=== PATIENT | female | born 1965 | race Caucasian/White ===

== ENCOUNTER 2018-05-15 19:23 | Emergency (ER) | payer MEDICAID, OTHER ==
[~2018-05-15] VITALS: Ht 157.5 cm; Wt 72.1 kg
[2018-05-15 20:10] VITALS: Ht 157.5 cm; Wt 72.1 kg
[2018-05-16] MEDS ORDERED: SOD CHLORIDE 0.9% 1,000 ML IV ONE (00:30)
[2018-05-16] MEDS ORDERED: KETOROLAC 15 MG INJ IV STA (00:45)
[2018-05-16] MEDS ORDERED: DIPHENHYDRAMINE 50 MG INJ IV ONE (01:00)
[2018-05-16] MEDS ORDERED: METOCLOPRAMIDE 10 MG INJ IV ONE (01:00)
[2018-05-16] MEDS ORDERED: METF-849 PO (02:34)
[2018-05-16] MEDS ORDERED: IBUP-1542 PO (02:35)
--- NOTE | 2018-05-16 02:43 | EN ---
Date/Time of Note Date/Time of Note DATE: 05/16/18 TIME: 02:43 IRASEMA ALVAREZ PA-C May 16, 2018 02:43
[2018-05-16 02:48] VITALS: BP 114/58; PULSE 50; RESP 18
--- NOTE | 2018-05-16 02:54 | ERD ---
ER Documentation Chief Complaint Chief Complaint headache x2 hrs. HPI This is a 52-year-old female presenting to the ED complaining of moderate tight bandlike headache for the past few hours. Patient states that she does not have any medical problems were checked her blood sugar at home and she said that she thought it was 500 therefore she came to the ER. Patient admits to nausea. She denies vomiting, vision changes, neuro deficits. States that she has not take any medications for this. ROS All systems reviewed and are negative except as per history of present illness. Medications Home Meds Active Scripts Ibuprofen* (Motrin*) 600 Mg Tab, 600 MG PO Q6H PRN for PAIN AND OR ELEVATED TEMP, #30 TAB Prov:IRASEMA ALVAREZ PA-C 05/16/18 Metformin* (Glucophage*) 500 Mg Tab, 500 MG PO BID, #60 TAB Prov:IRASEMA ALVAREZ PA-C 05/16/18 Allergies Allergies: Coded Allergies: No Known Allergy (Verified , 05/15/18) PMhx/Soc Medical and Surgical Hx: pt denies Medical Hx, pt denies Surgical Hx History of Surgery: Yes Anesthesia Reaction: No Hx Neurological Disorder: No Hx Respiratory Disorders: No Hx Cardiac Disorders: Yes Hx Psychiatric Problems: No Hx Miscellaneous Medical Probl: No Hx Alcohol Use: No Hx Substance Use: No Hx Tobacco Use: No Smoking Status: Never smoker Physical Exam Vitals Vital Signs Date Temp Pulse Resp B/P (MAP) Pulse Ox O2 O2 Flow FiO2 Time Delivery Rate 05/16/18 98.3 50 18 114/58 97 Room Air 02:48 (76) 05/15/18 97.0 71 16 121/79 98 20:10 (93) Physical Exam GENERAL: well-developed/well-nourished, in no apparent distress, non-toxic appearing HENT: NC/AT, bilateral tympanic membrane is normal with good cone of light, nares patent, oropharynx clear without exudates EYES: Conjunctiva normal, PERRLA, EOMI, no nystagmus noted NECK: Supple, no lymphadenopathy PULM: CTA bilaterally, no rales, rhonchi, or wheezing heard CV: Normal S1S2, RRR, good capillary refill GI: Soft, non-distended, normal bowel sounds, non-tender BACK: No midline tenderness, no masses, No CVAT EXT: No clubbing, cyanosis, or edema NEURO: Alert and orientated to person, place, and time. CN II-IIX intact. Gait and coordination were normal. Hand machinery mechanic strength were equal and within normal limits SKIN: Intact, normal turgor PSYCH: Normal mood and mentation, patient denied SI Result Diagram: 05/16/183105/16/18 0032 Results 24 hrs Laboratory Tests Test 05/16/18 00:30 05/16/18 00:32 05/16/18 01:21 Bedside Glucose 262 mg/dL White Blood Count 7.2 10^3/ul Red Blood Count 4.48 10^6/ul Hemoglobin 13.4 g/dl Hematocrit 38.2 % Mean Corpuscular Volume 85.3 fl Mean Corpuscular Hemoglobin 29.9 pg Mean Corpuscular 35.1 g/dl Hemoglobin Concent Red Cell Distribution Width 12.5 % Platelet Count 178 10^3/UL Mean Platelet Volume 11.2 fl Immature Granulocytes % 0.300 % Neutrophils % 42.9 % Lymphocytes % 44.5 % Monocytes % 8.1 % Eosinophils % 3.5 % Basophils % 0.7 % Nucleated Red Blood Cells % 0.0 /100WBC Immature Granulocytes # 0.020 10^3/ul Neutrophils # 3.1 10^3/ul Lymphocytes # 3.2 10^3/ul Monocytes # 0.6 10^3/ul Eosinophils # 0.3 10^3/ul Basophils # 0.1 10^3/ul Nucleated Red Blood Cells # 0.0 10^3/ul Sodium Level 141 mmol/L Potassium Level 3.7 mmol/L Chloride Level 98 mmol/L Carbon Dioxide Level 30 mmol/L Anion Gap 13 Blood Urea Nitrogen 11 mg/dl Creatinine 0.48 mg/dl Est Glomerular Filtrat > 60 mL/min Rate mL/min Glucose Level 289 mg/dl Calcium Level 10.0 mg/dl Total Bilirubin 0.2 mg/dl Direct Bilirubin 0.00 mg/dl Indirect Bilirubin 0.2 mg/dl Aspartate Amino 23 IU/L Transf (AST/SGOT) Alanine 37 IU/L Aminotransferase (ALT/SGPT) Alkaline Phosphatase 83 IU/L Total Protein 8.2 g/dl Albumin 4.4 g/dl Globulin 3.80 g/dl Albumin/Globulin Ratio 1.15 Lipase 73 U/L Urine Color YELLOW Urine Clarity CLEAR Urine pH 6.0 Urine Specific Baldwin 1.031 Urine Ketones TRACE mg/dL Urine Nitrite NEGATIVE mg/dL Urine Bilirubin NEGATIVE mg/dL Urine Urobilinogen NEGATIVE mg/dL Urine Leukocyte Esterase NEGATIVE Kathryn/ul Urine Hemoglobin NEGATIVE mg/dL Urine Glucose 3+ mg/dL Urine Total Protein NEGATIVE mg/dl Current Medications Medications Dose Sig/Rocío Start Time Status Last (Trade) Ordered Route PRN Stop Time Admin Dose Reason Admin Sodium 1,000 ml @ Q1H ONCE 05/16/18 DC 05/16/18 Chloride 1,000 mls/hr IV 00:30 00:39 05/16/18 01:29 Ketorolac 15 mg ONCE STAT 05/16/18 DC 05/16/18 Tromethamine IV 00:45 00:54 (Toradol) 05/16/18 00:46 25 mg ONCE ONCE 05/16/18 DC 05/16/18 Diphenhydrami IV 01:00 00:53 ne HCl 05/16/18 01:01 (Benadryl) 10 mg ONCE ONCE 05/16/18 DC 05/16/18 Metoclopramid IV 01:00 00:54 e HCl 05/16/18 01:01 (Reglan) Procedures/MDM This is a 52-year-old female presenting to the ED complaining of moderate headache for the past few hours. Patient reported high blood sugar at home therefore she came to the ED. Patient's blood sugar was 289 without any evidence of DKA or hyperosmolar state. Low suspicion for any emergent intracranial pathology at this time, patient has a normal neurologic exam, she is speaking clearly and ambulating well. Low suspicion for subarachnoid hemorrhage or CVA. Patient states that she did not have any history of diabetes, I have discussed that this is a new diagnosis of diabetes and that she will need to follow-up with her primary care physician for further evaluation mentioned. In the ED, patient was given 1 L of fluids. She was given Benadryl, Reglan and Toradol for the headache and states that she had full resolution in her symptoms. I have given patient a prescription for metformin to start and ibuprofen. Discussed with her to follow-up with her primary care physician tomorrow, patient understood and agreed this plan. Departure Diagnosis: Primary Impression: Headache Additional Impression: Hyperglycemia Condition: Stable Patient Instructions: Understanding Headache Pain, Managing Tension-type Headache Symptoms, Headache, Unspecified, Hyperglycemia, New Onset (Diabetes Suspected) [facility]: [facility] Usted se vidal hecho un examen mdico de control que le indica que no est en isael condicin que requiera tratamiento urgente en el Departamento de Emergencia. Un estudio ms profundo y el tratamiento de angel condicin pueden esperar sin ningn riesgo hasta que usted sea atendida/o en el consultorio de angel mdico o isael clnica. Es responsabilidad suya arreglar isael kenneth para el seguimiento del rafael. MANEJO DE CONDICIONES NO URGENTES EN EL FUTURO 1) Si usted tiene un mdico de atencin primaria: Usted debera llamar a angel mdico de atencin primaria antes de venir al departamento de emergencia. Despus de las horas de consultorio, angel doctor o angel asociado/a est disponible por telfono. El mdico o enfermero de binu en el servicio telefnico puede asesorarle por anne marie medio para atender el problema, o rafael contrario se puede programar isael kenneth. 2) Si usted no tiene un mdico de atencin primaria: Llame al mdico o clnica de referencia que aparece abajo ruth las horas de consultorio para hacer isael kenneth para que le vean. CLINICAS: [facility] [phone] [facility] [phone] [facility] [phone] [address] [facility]. [facility] [phone] [facility]. [facility] [phone] [address] [facility]. [phone] [address] Additional Instructions: Visite a angel mdico maana para un EXAMEN.Regrese a estas instalaciones si no se mejora be esperbamos o be le dijimos. ] [place] toda la medicina blas y be se le indic. Regrese a estas instalaciones si no se mejora be esperbamos o be le dijimos. IRASEMA ALVAREZ PA-C May 16, 2018 02:54
== END 2018-05-16 02:51 | disposition home or self-care (01) ==
LOC: FTE 19:23
DX: R73.9 Hyperglycemia, unspecified (principal)
CPT/HCPCS: 36415; 80053; 81003; 82962; 83690; 85025; 96361; 96374; 96375; 99284; J1200; J1885; J2765; J7030